=== PATIENT | female | born 1955 | race Caucasian/White ===

== ENCOUNTER → 2016-10-04 | Day surgery (SDC) | payer OTHER ==
[~2016-10-04] MED LIST: ALBUTEROL MININEB; ALBUTEROL MININEB NEB; ALPRAZOLAM PO; ALPRAZOLAM0.5 MG PO; ANORO ELLIPTA1 EACH INH; AXID150 MG PO; FOSAMAX70 MG PO; LEVAQUIN750 MG PO; LORTAB 10/500 T1 TAB PO; LYRICA75 MG PO; MEVACOR PO; NEURONTIN PO; NICOTINE TRANSD21 MG EXT; OS-CAL 500500 MG PO; OXYCONTIN15 MG DOB; PAXIL PO; PAXIL40 MG PO; PREDNISONE10 MG PO; PREDNISONE10 MG/DOSE PO; ROXICODONE15 MG PO; SYMBICORT INH; TIZANIDINE HCL4 M1 PO; TRAZODONE PO; WELLBUTRIN SR150 M1; ZANAFLEX PO; ZYRTEC10 M2 PO
--- NOTE | ~2016-10-04 | OR ---
Unit #: [id number] #: [id number] Patient: LAZARO RICH [id number] [address] [address] [id number] O MR#: [id number] NAME: LAZARO RICH. ROOM: Date of Procedure: 10/04/2016 Admission Date: 10/04/2016 Surgeon: Forrest Rhodes M.D. : 1955 Attending Physician: Forrest Rhodes M.D. Primary Care Physician: Adam Campbell M.D. OPERATIVE REPORT PROCEDURE PERFORMED Esophagogastroduodenoscopy with biopsy. INDICATIONS FOR PROCEDURE The patient with dysphagia, 50 pounds weight loss, undergoing upper endoscopy for evaluation. MEDICATIONS Monitored anesthesia. POSTOPERATIVE FINDINGS 1. Normal esophagus, but for very small hiatal hernia. 2. Diffuse moderately severe gastritis. Biopsies taken. 3. Normal duodenum and distal duodenum. PLAN Further evaluation to be considered with colonoscopy. DESCRIPTION OF PROCEDURE The patient was explained of the procedure, risks, and benefits along with risks and benefits of anesthesia. She was brought to the endoscopy room. Propofol anesthesia was given. Bite block was placed. The scope was passed down the mouth into esophagus, stomach, duodenum, and distal duodenum. Findings as described. Biopsies taken. Gently, I pulled it out of the patient's mouth. She tolerated it well. Dictated by... Jerilyn Lee/ju TD: 10/04/2016 23:43 JOB #: [id number] CC: Adam Campbell M.D. Unit #: [id number] #: [id number] Patient: LAZARO RICH OPERATIVE REPORT Page 1 of 1 X Forrest Rhodes MD PROCEDURE OPERATIVE NOTE
== END | disposition home or self-care (01) ==
LOC: COPS 07:53
DX: K29.50 Unspecified chronic gastritis without bleeding (principal); K44.9 Diaphragmatic hernia without obstruction or gangrene; J43.9 Emphysema, unspecified; F17.210 Nicotine dependence, cigarettes, uncomplicated; Z87.442 Personal history of urinary calculi; Z88.0 Allergy status to penicillin; Z79.83 Long term (current) use of bisphosphonates; Z79.899 Other long term (current) drug therapy; Z90.710 Acquired absence of both cervix and uterus; Z98.890 Other specified postprocedural states
CPT/HCPCS: 88305; 88312; 88342; J2250